=== PATIENT | male | born 2000 | race Caucasian/White ===

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

== ENCOUNTER 2022-11-18 20:13 | Emergency (ER) | payer OTHER ==
[~2022-11-18] VITALS: Ht 180.3 cm; Wt 63.5 kg
[~2022-11-18 20:13] MED LIST changes: +Veetids 500500 MG PO
[2022-11-20 10:08] LABS: HIV AB/P24 AG SCREEN Non Reactive (Non Reactive)
[2022-11-21 00:09] LABS: CHLAMYDIA TRACHOMATIS, NAA Positive (Negative)
== END 2022-11-18 22:15 | disposition home or self-care (01) ==
LOC: ER 20:13
PROVIDERS: Student in an Organized Health Care Education/Training Program
DX: Z20.2 Contact with and (suspected) exposure to infections with a predominantly sexual mode of transmission (principal); F19.20 Other psychoactive substance dependence, uncomplicated
CPT/HCPCS: 36415; 86592; 87389

== ENCOUNTER 2024-05-14 02:51 | Emergency (ER) | payer OTHER ==
[~2024-05-14] VITALS: Ht 180.3 cm; Wt 72.6 kg
[2024-05-14] MEDS ORDERED: Ibuprofen 600 MG Tab PO ONE (03:05)
[2024-05-14 03:07] VITALS: BP 147/89
[2024-05-14] MEDS ORDERED: Veetids 500500 MG PO (03:07)
[2024-05-14] MEDS ORDERED: IBU600 MG PO (03:07)
[2024-05-14] MEDS ORDERED: Penicillin V Potassium 250 MG Tab PO ONE (03:10)
== END 2024-05-14 03:15 | disposition home or self-care (01) ==
LOC: ER 02:51
DX: K08.89 Other specified disorders of teeth and supporting structures (principal)
CPT/HCPCS: 99282; A9270

== ENCOUNTER 2025-02-15 14:04 | Emergency (ER) | payer OTHER ==
[~2025-02-15] VITALS: Ht 180.3 cm; Wt 72.6 kg
[~2025-02-15 14:04] MED LIST changes: +IBU600 MG PO
[2025-02-15 14:24] VITALS: BP 137/76
[2025-02-15] MEDS ORDERED: ALBU90OI INH (15:21)
== END 2025-02-15 15:28 | disposition home or self-care (01) ==
LOC: ER 14:04
DX: J40 Bronchitis, not specified as acute or chronic (principal); Z79.899 Other long term (current) drug therapy
CPT/HCPCS: 71046; 99283-25

== ENCOUNTER → 2025-06-10 | Outpatient (CLI) | payer OTHER ==
[2025-06-11 10:53] LABS: Chlamydia Trachomatis Urine NOT DETECTED (NOT DETECT); Neisseria Gonorrhoea Urine NOT DETECTED (NOT DETECT)
== END ==
LOC: LAB 18:52 → LAB SHORT 18:52
PROVIDERS: Physician Assistant
DX: N45.1 Epididymitis (principal)
CPT/HCPCS: 87086; 87491; 87591

== ENCOUNTER 2025-10-15 16:51 | Emergency (ER) | payer SELFPAY ==
[~2025-10-15] VITALS: Ht 180.3 cm; Wt 73.0 kg
[2025-10-15 17:08] VITALS: BP 138/84
[2025-10-15 17:57] LABS: Source, Urine Clean Catch
[2025-10-15 17:59] LABS: Bilirubin, Urine Neg (Neg); Color, Urine Yellow (P-Yellow); Glucose Qualitative, Urine Neg (Neg); Ketones, Urine Neg (Neg); Leukocyte Esterase, Urine Neg (Neg); Protein, Urine Neg (Neg); Specific Gravity, Urine 1.015 (1.003-1.022); Urobilinogen, Urine NORM (Normal)
[2025-10-15] MEDS ORDERED: BUPRENORPHIN-N1 EAC5 SL (18:13)
== END 2025-10-15 18:52 | disposition home or self-care (01) ==
LOC: ER 16:51
PROVIDERS: Emergency Medicine
DX: M54.50 Low back pain, unspecified (principal); Z59.89 Other problems related to housing and economic circumstances
CPT/HCPCS: 81003; 99283